=== PATIENT | male | born 1965 | race Caucasian/White ===

== ENCOUNTER → 2017-06-02 | Outpatient (CLI) | payer OTHER ==
[~2017-06-02] MED LIST: AUGMENTIN 875 M1 TAB PO; COLCHICINE0.5 MG PO; METICORTEN1 MG PO; MOTRIN800 MG PO; PRILOSEC10 MG PO; [UNRECOGNIZED DRUG - OTHER]
[2017-06-02 09:47] LABS: BASO % 0.3 % (0.0-1.0); EOS # 0.1 10*3/uL (0.0-0.4); EOS % 0.9 % (1.0-4.0); HEMATOCRIT 45.7 % (42.0-52.0); HEMOGLOBIN 15.6 g/dl (14.0-18.0); LYMPH % 34.7 % (27.0-41.0); MEAN CELL VOLUME 87.5 fl (80.0-94.0); MEAN CORPUSCULAR HGB 29.9 pg (27.0-31.0); MEAN CORPUSCULAR HGB CONC 34.1 g/dl (33.0-37.0); MEAN PLATELET VOLUME 9.3 fl (9.6-12.3); MONO # 0.5 10*3/uL (0.1-1.0); MONO % 9.1 % (3.0-9.0); NEUT # 3.2 10*3/uL (2.3-7.9); NEUT % 54.8 % (47.0-73.0); PLATELET COUNT AUTOMATED 255 10*3/uL (130-400); RED BLOOD COUNT 5.22 10*6/uL (4.50-5.90); RED CELL DISTRI WIDTH 12.2 % (0-14.5); WHITE BLOOD COUNT 5.8 10*3/uL (4.8-10.8)
[2017-06-02 10:16] LABS: ALBUMIN 3.7 gm/dl (3.1-4.5); ALKALINE PHOSPHATASE 68 U/L (45-117); BILIRUBIN, TOTAL 0.7 mg/dl (0.2-1.0); BUN 16 mg/dl (7-24); CARBON DIOXIDE 31 mmol/L (21-32); CHLORIDE 108 mmol/L (98-107); EST GLOM FILT AFRICAN AMERICAN > 60 ml/min; GLUCOSE 98 mg/dL (65-99); POTASSIUM 4.9 mmol/L (3.5-5.1); SGOT/AST 23 IU/L (3-35); SGPT/ALT 42 U/L (12-78); SODIUM 145 mmol/L (136-145)
== END | disposition home or self-care (01) ==
LOC: LAB 09:33
PROVIDERS: Orthopaedic Surgery
DX: I31.3 Pericardial effusion (noninflammatory) (principal); R79.89 Other specified abnormal findings of blood chemistry

== ENCOUNTER → 2017-07-02 | Outpatient (CLI) | payer OTHER ==
[2017-07-02 08:54] LABS: BASO % 0.6 % (0.0-1.0); EOS # 0.1 10*3/uL (0.0-0.4); HEMATOCRIT 44.3 % (42.0-52.0); HEMOGLOBIN 15.5 g/dl (14.0-18.0); LYMPH # 1.8 10*3/uL (1.3-4.4); LYMPH % 28.1 % (27.0-41.0); MEAN CELL VOLUME 88.2 fl (80.0-94.0); MEAN CORPUSCULAR HGB 30.9 pg (27.0-31.0); MEAN PLATELET VOLUME 9.4 fl (9.6-12.3); MONO # 0.7 10*3/uL (0.1-1.0); MONO % 11.6 % (3.0-9.0); NEUT # 3.6 10*3/uL (2.3-7.9); NEUT % 58.4 % (47.0-73.0); PLATELET COUNT AUTOMATED 232 10*3/uL (130-400); RED BLOOD COUNT 5.02 10*6/uL (4.50-5.90); RED CELL DISTRI WIDTH 12.3 % (0-14.5); WHITE BLOOD COUNT 6.2 10*3/uL (4.8-10.8)
[2017-07-02 09:23] LABS: ALBUMIN 3.5 gm/dl (3.1-4.5); ALKALINE PHOSPHATASE 76 U/L (45-117); BILIRUBIN, TOTAL 0.6 mg/dl (0.2-1.0); BUN 13 mg/dl (7-24); CARBON DIOXIDE 27 mmol/L (21-32); CHLORIDE 108 mmol/L (98-107); EST GLOM FILT AFRICAN AMERICAN > 60 ml/min; GLUCOSE 93 mg/dL (65-99); POTASSIUM 4.1 mmol/L (3.5-5.1); SGOT/AST 38 IU/L (3-35); SGPT/ALT 60 U/L (12-78); SODIUM 142 mmol/L (136-145); TOTAL PROTEIN 6.7 gm/dL (6.4-8.2)
== END | disposition home or self-care (01) ==
LOC: LAB 08:31
PROVIDERS: Orthopaedic Surgery
DX: I31.3 Pericardial effusion (noninflammatory) (principal); I31.9 Disease of pericardium, unspecified

== ENCOUNTER → 2017-07-03 | Outpatient (CLI) | payer OTHER | END | disposition home or self-care (01) | LOC: LAB 12:56 | DX: I31.3 Pericardial effusion (noninflammatory) (principal) ==

== ENCOUNTER 2018-02-02 17:34 | Emergency (ER) | payer OTHER ==
[~2018-02-02] VITALS: Ht 177.8 cm; Wt 81.6 kg
[2018-02-02] MEDS ORDERED: AUGMENTIN 875875 MG PO (18:08)
== END 2018-02-02 18:21 | disposition home or self-care (01) ==
LOC: ED 17:34
DX: S61.452A Open bite of left hand, initial encounter (principal); W55.01XA Bitten by cat, initial encounter; Y93.89 Activity, other specified; Y92.89 Other specified places as the place of occurrence of the external cause; Y99.8 Other external cause status

== ENCOUNTER → 2018-06-11 | Outpatient (CLI) | payer OTHER ==
[~2018-06-11] MED LIST changes: +AUGMENTIN 875875 MG PO; +NORCO 5-325 TA1 EACH PO
[2018-06-11 11:21] LABS: BILIRUBIN NEGATIVE (NEGATIVE); BLOOD TRACE-LYSED (NEGATIVE); CLARITY SL CLOUDY (CLEAR); COLOR YELLOW (YELLOW); GLUCOSE NEGATIVE (NEGATIVE); KETONE NEGATIVE (NEGATIVE); LEUKO ESTERASE NEGATIVE (NEGATIVE); NITRITE NEGATIVE (NEGATIVE); PH 5.5 (5.0-9.0); SPECIFIC GRAVITY 1.025 (1.005-1.030); UROBILINOGEN 0.2 E.U./dl (0.2-1.0)
[2018-06-11 11:27] LABS: BASO % 0.5 % (0.0-1.0); EOS % 0.7 % (1.0-4.0); HEMATOCRIT 46.9 % (42.0-52.0); LYMPH # 1.6 10*3/uL (1.3-4.4); LYMPH % 26.4 % (27.0-41.0); MEAN CELL VOLUME 89.7 fl (80.0-94.0); MEAN CORPUSCULAR HGB 30.6 pg (27.0-31.0); MEAN CORPUSCULAR HGB CONC 34.1 g/dl (33.0-37.0); MEAN PLATELET VOLUME 9.5 fl (9.6-12.3); MONO # 0.6 10*3/uL (0.1-1.0); MONO % 9.6 % (3.0-9.0); NEUT # 3.8 10*3/uL (2.3-7.9); NEUT % 62.6 % (47.0-73.0); PLATELET COUNT AUTOMATED 246 10*3/uL (130-400); RED BLOOD COUNT 5.23 10*6/uL (4.50-5.90); RED CELL DISTRI WIDTH 12.2 % (0-14.5); WHITE BLOOD COUNT 6.1 10*3/uL (4.8-10.8)
[2018-06-11 11:34] LABS: MUCOUS 2+; WBC 0-2 wbc/hpf (0-5)
[2018-06-11 11:53] LABS: ALBUMIN 4.1 gm/dl (3.1-4.5); ALKALINE PHOSPHATASE 66 U/L (45-117); BILIRUBIN, DIRECT 0.2 mg/dL (0.0-0.2); BUN 15 mg/dl (7-24); CHLORIDE 109 mmol/L (98-107); CREATININE 1.07 mg/dL (0.70-1.30); POTASSIUM 4.6 mmol/L (3.5-5.1); SGOT/AST 20 IU/L (3-35); SGPT/ALT 45 U/L (12-78); SODIUM 144 mmol/L (136-145); TOTAL PROTEIN 7.3 gm/dL (6.4-8.2)
[2018-06-11 11:54] LABS: ACT PARTIAL THROMBO TIME 24.8 SECONDS (20.8-31.5)
== END | disposition home or self-care (01) ==
LOC: LAB 10:03
PROVIDERS: Surgery
DX: K80.80 Other cholelithiasis without obstruction (principal)

== ENCOUNTER 2018-06-17 19:52 | Inpatient (IN) | payer OTHER ==
[~2018-06-17] VITALS: Ht 190.5 cm; Wt 88.5 kg
--- NOTE | ~2018-06-17 | EKG ---
[place], [place] ELECTROCARDIOGRAM REPORT NAME: ADRIANA MOODY UNIT #: [id number] ROOM: 518 DOCTOR: ABRIL DRAFT REPORT BIRTHDATE: [birth year] [facility] Test Date: 2018-06-18 Test Time: 01:05:34 Pat Name: ADRIANA MOODY Department: Room: 518 1 Gender: M Bleach Analyst: EZRA : [id number] Requested By: SIN WOLF Order Number: [id number] Reading MD: Lisandro Womack MD Measurements Intervals Andrews Rate: 70 P: 49 OR: 141 QRS: 2 QRSD: 104 T: 11 QT: 391 QTc: 422 Interpretive Statements Sinus rhythm Probable left atrial enlargement Baseline wander in lead(s) I,III,aVL Electronically Signed On 06-18-2018 7:53:44 PDT by Lisandro Womack MD CM:EKGRPT:ELECTROCARDIOGRAM REPORT [id number] SIN BIRCH DRAFT REPORT SIN WOLF DO
[2018-06-17 19:54] VITALS: BP 105/61
[2018-06-17 20:46] LABS: BASO % 0.1 % (0.0-1.0); HEMATOCRIT 40.4 % (42.0-52.0); HEMOGLOBIN 13.7 g/dl (14.0-18.0); LYMPH % 7.2 % (27.0-41.0); MEAN CELL VOLUME 89.8 fl (80.0-94.0); MEAN CORPUSCULAR HGB 30.4 pg (27.0-31.0); MEAN CORPUSCULAR HGB CONC 33.9 g/dl (33.0-37.0); MEAN PLATELET VOLUME 9.7 fl (9.6-12.3); MONO # 1.1 10*3/uL (0.1-1.0); MONO % 8.1 % (3.0-9.0); NEUT # 11.4 10*3/uL (2.3-7.9); NEUT % 84.3 % (47.0-73.0); PLATELET COUNT AUTOMATED 202 10*3/uL (130-400); RED CELL DISTRI WIDTH 12.1 % (0-14.5); WHITE BLOOD COUNT 13.6 10*3/uL (4.8-10.8)
[2018-06-17 21:02] VITALS: BP 120/78
[2018-06-17 21:05] LABS: ALBUMIN 3.4 gm/dl (3.1-4.5); ALKALINE PHOSPHATASE 49 U/L (45-117); BUN 11 mg/dl (7-24); CHLORIDE 107 mmol/L (98-107); CREATININE 0.98 mg/dL (0.70-1.30); LIPASE 64 U/L (73-393); POTASSIUM 4.4 mmol/L (3.5-5.1); SGOT/AST 23 IU/L (3-35); SGPT/ALT 41 U/L (12-78); SODIUM 141 mmol/L (136-145); TOTAL PROTEIN 5.6 gm/dL (6.4-8.2)
[2018-06-17 21:58] VITALS: BP 119/77
[2018-06-17 22:05] LABS: BILIRUBIN NEGATIVE (NEGATIVE); BLOOD NEGATIVE (NEGATIVE); CLARITY CLEAR (CLEAR); COLOR YELLOW (YELLOW); GLUCOSE NEGATIVE (NEGATIVE); KETONE NEGATIVE (NEGATIVE); LEUKO ESTERASE NEGATIVE (NEGATIVE); NITRITE NEGATIVE (NEGATIVE); PH 6.5 (5.0-9.0); UROBILINOGEN 0.2 E.U./dl (0.2-1.0)
[2018-06-17 22:37] LABS: WBC 0-2 wbc/hpf (0-5)
[2018-06-17 22:45] VITALS: BP 129/77
[2018-06-17 22:52] VITALS: BP 129/77
[2018-06-18 06:21] LABS: BASO % 0.2 % (0.0-1.0); EOS # 0.1 10*3/uL (0.0-0.4); HEMATOCRIT 38.7 % (42.0-52.0); HEMOGLOBIN 12.6 g/dl (14.0-18.0); LYMPH # 2.1 10*3/uL (1.3-4.4); MEAN CELL VOLUME 90.4 fl (80.0-94.0); MEAN CORPUSCULAR HGB 29.4 pg (27.0-31.0); MEAN CORPUSCULAR HGB CONC 32.6 g/dl (33.0-37.0); MEAN PLATELET VOLUME 9.9 fl (9.6-12.3); MONO # 0.9 10*3/uL (0.1-1.0); MONO % 11.2 % (3.0-9.0); NEUT # 5.3 10*3/uL (2.3-7.9); NEUT % 62.5 % (47.0-73.0); PLATELET COUNT AUTOMATED 199 10*3/uL (130-400); RED BLOOD COUNT 4.28 10*6/uL (4.50-5.90); RED CELL DISTRI WIDTH 12.2 % (0-14.5); WHITE BLOOD COUNT 8.4 10*3/uL (4.8-10.8)
[2018-06-18 06:41] LABS: ALBUMIN 3.1 gm/dl (3.1-4.5); ALKALINE PHOSPHATASE 49 U/L (45-117); BUN 10 mg/dl (7-24); CHLORIDE 111 mmol/L (98-107); CHOLESTEROL 114 mg/dL (<200); CREATININE 1.03 mg/dL (0.70-1.30); FREE T4 0.95 ng/dl (0.76-1.46); HDL CHOLESTEROL 41 mg/dl (40-60); LDL CHOLESTEROL 52 mg/dL (9-159); POTASSIUM 3.8 mmol/L (3.5-5.1); SGOT/AST 19 IU/L (3-35); SGPT/ALT 38 U/L (12-78); SODIUM 145 mmol/L (136-145); TOTAL PROTEIN 5.5 gm/dL (6.4-8.2); TRIGLYCERIDES 104 mg/dl (<150); VLDL CHOLESTEROL 21 mg/dL (6-40)
[2018-06-18 08:06] LABS: VITAMIN D, 25-HYDROXY 29.3 ng/mL (30-100)
[2018-06-18] MEDS ORDERED: NORCO 5-325 TA1 EACH PO (11:32)
== END 2018-06-18 12:20 | disposition home or self-care (01) | DRG 312 ==
LOC: ED 19:52 → 5E 21:17 → EDHOLD 21:17 → 5E 22:03
PROVIDERS: Emergency Medicine; Internal Medicine
DX: R55 Syncope and collapse (principal); E44.0 Moderate protein-calorie malnutrition; D64.9 Anemia, unspecified; D72.825 Bandemia; E83.51 Hypocalcemia; Z98.890 Other specified postprocedural states; Z79.899 Other long term (current) drug therapy; Z90.49 Acquired absence of other specified parts of digestive tract; Z80.42 Family history of malignant neoplasm of prostate; Z80.1 Family history of malignant neoplasm of trachea, bronchus and lung; Z80.59 Family history of malignant neoplasm of other urinary tract organ; Z88.8 Allergy status to other drugs, medicaments and biological substances; Z68.24 Body mass index [BMI] 24.0-24.9, adult

== ENCOUNTER → 2018-06-17 | Day surgery (SDC) | payer OTHER ==
[~2018-06-17] VITALS: Ht 177.8 cm; Wt 82.6 kg
[2018-06-17] VITALS (8 sets, daily range): BP systolic 108–132; BP diastolic 60–79
--- NOTE | ~2018-06-17 | O ---
[place], [place] OPERATIVE NOTE [id number] UNIT #: [id number] ROOM: DOCTOR: JIMI JAVIER MD BIRTHDATE: [birth year] DOS: 06/17/2018 PREOPERATIVE DIAGNOSIS: Symptomatic gallstones. POSTOPERATIVE DIAGNOSIS: Symptomatic gallstones. PROCEDURE: Laparoscopic cholecystectomy. SURGEON: Jimi Javier MD PLANT PRODUCTION MANAGER: UNRULY. ANESTHESIA: General with endotracheal intubation. INDICATIONS: This is a 52-year-old gentleman admitted with symptomatic gallstones, who is here for the above-mentioned procedure. The procedure and its complications were explained to the patient in detail preoperatively. Complications that were discussed included but were not limited to bleeding, infection, hematoma/seroma/abscess formation, prolonged postoperative pain, biloma formation, inadvertent injury to common bile duct, incisional hernia formation and he agreed to proceed. DESCRIPTION OF PROCEDURE: After identifying the patient, the patient was brought to the operating suite and was laid in the supine position. After general anesthesia administered, the parts were painted and draped in the usual sterile fashion. A time-out procedure was called. An incision was made in a transverse fashion below the umbilicus. The skin and the subcutaneous tissue were incised in the line of the incision. The fascia was incised and 2 stay sutures were taken on either side. The peritoneum was opened and a 12 mm Brenda port was introduced into the peritoneal cavity. Pneumoperitoneum was created. Under direct vision, an epigastric incision of 10 mm was made. Adhesions between the gallbladder and the overlying peritoneum were taken down with the help of electrocautery and the LigaSure device. Thereafter, the gallbladder was retracted superiorly and laterally, after 2 more 5 mm ports were put in, the cystic duct and the cystic artery were meticulously dissected until the critical view of safety was obtained and the triangle of Calot was identified. Each of these structures were then clipped 3 times and cut between the first and the second clip. The gallbladder was then removed from the bed of the gallbladder with the help of electrocautery and placed in an EndoCatch bag. It was sent for histopathological diagnosis. Hemostasis was achieved in the liver bed and an Interceed patch was placed for hemostasis. Thereafter, hemostasis was confirmed again and the right upper quadrant and epigastric ports were removed. There was no bleeding seen. The umbilical port was also removed. The fascial defect was approximated with the help of 0 Vicryl in interrupted fashion. The stay sutures were tied together. The edges of the skin were infiltrated with 1% lidocaine and approximated with the help of 4-0 Vicryl in a subcuticular running fashion. Dressings were placed. The patient tolerated the procedure well. There were no complications. Dr. Jimi Javier, the attending surgeon, was present throughout the operating case. [place], [place] OPERATIVE NOTE NAME: ADRIANA MOODY UNIT #: [id number] ROOM: DOCTOR: JIMI JAVIER MD BIRTHDATE: [birth year] Jimi Javier MD CM:OPRECORD:OPERATIVE NOTE [id number] JIMI JAVIER MD 06/17/18 1438 interface
== END | disposition home or self-care (01) ==
LOC: SDC 06-11 10:15
DX: K80.10 Calculus of gallbladder with chronic cholecystitis without obstruction (principal); K21.9 Gastro-esophageal reflux disease without esophagitis; Z98.890 Other specified postprocedural states; Z79.899 Other long term (current) drug therapy

== ENCOUNTER 2019-09-02 08:08 | Emergency (ER) | payer OTHER | END 2019-09-02 11:00 | disposition home or self-care (01) | LOC: ED 08:08 | DX: S61.215A Laceration without foreign body of left ring finger without damage to nail, initial encounter (principal); Z90.49 Acquired absence of other specified parts of digestive tract; Z98.890 Other specified postprocedural states; Z88.1 Allergy status to other antibiotic agents; W26.0XXA Contact with knife, initial encounter; Y93.89 Activity, other specified; Y92.69 Other specified industrial and construction area as the place of occurrence of the external cause; Y99.9 Unspecified external cause status ==

== ENCOUNTER → 2019-11-11 | Outpatient (CLI) | payer OTHER | END | disposition home or self-care (01) | LOC: ORTHO 00:32 | DX: M25.562 Pain in left knee (principal) ==

== ENCOUNTER → 2019-11-30 | Outpatient (CLI) | payer OTHER | END | disposition home or self-care (01) | LOC: MRI 13:49 | DX: M25.462 Effusion, left knee (principal); M94.8X8 Other specified disorders of cartilage, other site ==